=== PATIENT | female | born 1960 | race Two or more races ===

== ENCOUNTER 2019-11-06 09:45 | Emergency (ER) | payer MEDICARE, OTHER ==
[~2019-11-06] VITALS: Ht 154.9 cm; Wt 83.9 kg
[~2019-11-06 09:45] MED LIST: [UNRECOGNIZED DRUG - REMARK]
[2019-11-06 10:54] VITALS: BP 117/74
[2019-11-06] MEDS ORDERED: HYDROCODONE/APAP 5/325MG 1 EACH TABLET ONE (10:56)
[2019-11-06] MEDS: HYDROCODONE/APAP 5/325MG 1 EACH TABLET PO ONE (10:58)
== END 2019-11-06 11:52 | disposition home or self-care (01) ==
LOC: ER 09:45
DX: M75.31 Calcific tendinitis of right shoulder (principal); E78.00 Pure hypercholesterolemia, unspecified
CPT/HCPCS: 73030-TC; 73060-TC